=== PATIENT | female | born 1980 | race Two or more races ===

== ENCOUNTER 2024-06-30 16:29 | Emergency (ER) | payer MEDICAID, SELFPAY ==
[2024-06-30 17:03] VITALS: BP 143/95; PULSE 80; RESP 20; TEMP 36.6; O2SAT 99
--- NOTE | 2024-06-30 17:07 | XR_ITS ---
Examination: CT brain head without contrast. 2-D sagittal coronal reconstructions Date and time of exam:June 30, 2024 1708 hrs. Indications: Patient fell downstairs today with injury to the head, head pain CTDI: vol (mGy):54.1 DLP: (mGycm):1050 Technique: Multiple CT axial sections of the brain have been obtained, 5 mm slice thickness. Contrast has not been administered. 2-D sagittal, coronal reconstructions have been obtained Low dose protocols were performed. One or more of the following dose reduction techniques were used; automated exposure control, adjustment of the mA and/or KV according to patient size, use of iterative reconstruction technique. Findings: No significant ventricular enlargement. Intra-axial or extra-axial hemorrhage density is not seen. No mass effect or midline shift Basal cisterns are not remarkable. Fourth ventricle is midline. Cranial vault intact. Impression: Negative for acute hemorrhage, mass effect or midline shift
--- NOTE | 2024-06-30 17:07 | XR_ITS ---
Examination: Right wrist 2 views Technique one AP lateral right wrist 2 views Exam date and time: June 30, 2024 1721 hrs. Findings: This examination performed 1722 hrs., oon Synapse 7:42 PM No fracture No dislocation No foreign body Impression: No acute fracture
--- NOTE | 2024-06-30 17:07 | XR_ITS ---
Examination: Right elbow 3 views Technique: Elbow AP, oblique, lateral 3 views Exam date and time: June 30, 2024 1725 hrs. Indications: Patient fell today with injury to the elbow, elbow pain. Findings: No fracture or dislocation No opaque foreign body Impression: No fracture or dislocation.
--- NOTE | 2024-06-30 17:07 | XR_ITS ---
Examination: CT cervical spine without contrast 2-D sagittal reconstructions 2-D coronal reconstructions 3-D reconstructions. Exam date and time:June 30, 2024 1708 hrs. Indications: Patient fell today with injury to the neck, neck pain CTDI:vol (mGy) 9.45 DLP: (mGycm) 229 Technique: Multiple 2 mm axial sections of the cervical spine have been obtained. The coronal and sagittal reconstructions have been obtained. 3-D reconstructions have been obtained. Low dose protocols were performed. One or more of the following dose reduction techniques were used; automated exposure control, adjustment of the mA and/or KV according to patient size, use of iterative reconstruction technique. Findings: Axial sections demonstrate intact base of the skull. C1 exhibit satisfactory relationship to the odontoid. No acute cervical vertebral body fracture seen. Alignment posterior spinous processes satisfactory. Impression: No acute cervical fracture.
--- NOTE | 2024-06-30 17:08 | EDNOTE_ITS ---
<Statement entered by Julienne Pizano MD - 07/01/24 01:46> As co-signing physician, I was present and available for consult prn. I concur with the plan and care as documented by the midlevel provider. ED Fall Injury RME/HPI General Chief Complaint: Fall Stated Complaint: FELL DOWN STAIRS Time Seen by Provider: 06/30/24 17:01 Arrival date/time: 06/30/24 16:29 43-year-old female reports with complaints of multiple injuries after falling down a flight of stairs. Patient states that she fell down approximately 20 submitted stairs slamming her head on the cement injuring the right elbow and wrist. Patient denies any loss of consciousness dizziness blurred vision ringing in ears shortness of breath chest pain nausea or vomiting numbness tingling decreased range of motion or weakness of the right upper extremity. Patient reports taking no medications for pain and denies chance of Limitations: no limitations Related Data Previous Rx's ?Medication ?Instructions ?Recorded cefuroxime axetil 500 mg tablet 500 mg PO BID #14 tabs 09/30/22 pantoprazole 40 mg tablet,delayed 40 mg PO QDAY #20 ta bs 09/30/22 release (Protonix) Allergies Allergy/AdvReac Type Severity Reaction Status Date / Time No Known Allergies Allergy Verified 09/30/22 11:49 Review of Systems Constitutional Constitutional: Denies chills and Denies fever(s) ENT Ears, Nose, Mouth, and Throat: Denies disequilibrium, Denies dizziness, Reports neck pain and Denies vertigo Cardiovascular Cardiovascular: Denies chest pain, Denies dyspnea and Denies syncope Respiratory Respiratory: Denies dyspnea and Denies hemoptysis Gastrointestinal Gastrointestinal: Denies nausea and Denies vomiting Musculoskeletal Musculoskeletal: Reports arthralgias, Denies joint swelling, Reports neck pain, Denies numbness and Denies tingling Integumentary/Breasts Skin/Breast: Denies unusual bruising and Denies wounds Neurologic Neurologic: Denies behavioral changes, Denies confusion, Denies convulsions, Denies disequilibrium, Denies dizziness, Denies numbness, Denies syncope, Denies tingling and Denies vertigo Psychiatric Psychiatric: Denies behavioral changes and Denies confusion Hematologic/Lymphatic Hematologic/Lymphatic: Denies easy bleeding and Denies easy bruising Past Medical History Past Medical History CARDIAC: Positive Cardiac Disorders and Hypertension; Negative Congestive Heart Failure RESPIRATORY: Negative Chronic Obstructive Pulmonary Disease (COPD) GENITOURINARY: Negative Renal Disease ENDOCRINE: Negative Diabetes Mellitus Type 1 or Diabetes Mellitus Type 2 Social History SMOKING STATUS: Never smoker ED Exam General Limitations: Present no limitations General appearance: Present alert and in no apparent distress Head Head exam: Present atraumatic, normocephalic and normal inspection Eye Eye exam: Present normal appearance, PERRL and EOMI ENT ENT exam: Present normal exam, normal oropharynx and mucous membranes moist Neck Neck exam: Present normal inspection, full ROM and trachea midline Chest Chest inspection: Present normal inspection and symmetric chest wall rise Respiratory Respiratory exam: Present normal lung sounds bilaterally Cardiovascular Cardiovascular exam: Present regular rate, normal rhythm and normal heart sounds Abdominal Exam Abdominal exam: Present soft and normal bowel sounds Extremities Exam Extremities exam: Present normal inspection and full ROM Expanded Upper Extremity Exam Shoulder exam: Present normal inspection and full ROM; Absent tenderness Arm exam: Present normal inspection and full ROM; Absent tenderness Elbow exam: Present normal inspection, full ROM and tenderness (Mild tenderness diffusely over the right olecranon); Absent swelling, abrasion, laceration, ecchymosis, deformity, crepitus, dislocation, erythema, effusion, pain w/ pronation/supination or tenderness over radial head Forearm/Wrist exam: Present normal inspection, full ROM and tenderness (Diffusely tender to right wrist); Absent swelling, abrasion, laceration, ecchymosis, deformity, crepitus, dislocation, erythema, tenderness over anatomical snuff box or pain with axial thumb loading Hand exam: Present normal inspection and full ROM Neuromotor exam: Normal wrist extension, thumb opposition, thumb IP flexion and fingers 2-5 abduction Neurosensory exam: Normal radial nerve and ulnar nerve Vascular exam: Normal capillary refill, radial pulse and ulnar pulse Back Exam Back exam: Present normal inspection and full ROM Neurological Exam Neurological exam: Present alert, oriented X3 and CN II-XII intact Psychiatric Psychiatric exam: Present normal affect and normal mood Skin Skin exam: Present warm, dry, intact and normal color Course Course Course Narrative: 43-year-old female reports with multiple injuries after falling down a flight of stairs. Head CT is negative for mid shifts or fractures CT cervical spine also negative for fractures or derangements x-ray of the right elbow and wrist also negative for fractures or dislocations. Quality Measures none Orders Category Date Time Status CT cervical spine wo con Stat Exams 06/30/24 17:[address] head/brain wo con Stat Exams 06/30/24 17:07 Completed XR elbow comp RT min 3V Stat Exams 06/30/24 17:07 Completed XR wrist RT 2V Stat Exams 06/30/24 17:07 Taken Vital Signs Vital signs: Vital Signs Temperature 97.9 F 06/30/24 17:03 Pulse Rate 80 06/30/24 17:03 Respiratory Rate 20 06/30/24 17:03 Blood Pressure 143/95 H 06/30/24 17:03 Pulse Oximetry (%) 99 06/30/24 17:03 Oxygen Delivery Method Room Air 06/30/24 17:03 Fall Patient data External records reviewed:: None Clinical information provided by:: patient Social determinants that could affect healthcare access:: none Patient has the following chronic illnesses:: none How is presenting disease/condition affected by chronic disease/condition?: no chronic disease Evaluation data The following diagnostics were reviewed and interpreted by me:: radiology exam(s) Lab and/or radiology exams considered but not ordered:: none Interpretation Summary: Head CT is negative for bleeds or mid shift, CT of cervical spine negative for fractures or derangements, x-ray of right elbow negative for fractures or dislocations, x-ray of right wrist negative for fractures or dislocations Medications / Prescriptions Medications or Prescriptions considered but not ordered:: none Medication administrations:: none Consultations Consultation(s) initiated? (list below): No Diagnosis Fall Differential Diagnosis: fracture of wrist, concussion without loss of consciousness and other Most likely diagnosis given after review of the tests above:: 1 scalp contusion. 2 elbow contusion. 3 right wrist sprain 4. cervical strain Admission Indicated Admission indicated?: not indicated Admission Request Was there a request for admission?: No Disposition Plan Disposition Plan: Discharge Discharge Attestation Discharge Attestation: The patient and all family members were given an opportunity to ask questions and understood the discharge instructions. Discharge instructions specifically effects, indications for sooner follow up or return to the emergency department, and the expected course of current diagnosis. Patient condition: Stable Discharge Plan Plan Patient Disposition: HOME (Self Care) Prescriptions/Referrals Prescriptions/Med Rec: No Action cefuroxime axetil 500 mg tablet 500 mg PO BID Qty: 14 0RF pantoprazole [Protonix] 40 mg tablet,delayed release (/EC) 40 mg PO QDAY Qty: 20 0RF Referrals: Mary Dennis FNP [Primary Care Provider] - In 1 week Problem List Clinical Impression: Contusion of scalp, Cervical sprain, Contusion of elbow, right, Right wrist sprain Patient/Caregiver Discharge Instructions Education Materials: ED Head Injury (Adult), ED Neck Sprain or Strain, ED Muscle Strain, Extremity Additional Instructions: Your scans and x-rays were all normal your pain is from bruising and strains use medication such as Tylenol or ibuprofen as needed for pain apply ice and rest follow-up with your primary care provider if no improvement in 3 days Print Language: Nigerien Stand Alone Forms: Courtney Award Info., Patient Portal Info Letter
== END 2024-06-30 19:59 | disposition home or self-care (01) ==
PROVIDERS: Emergency Provider Emergency Medicine; PCP Nurse Practitioner Family
DX: S00.03XA Contusion of scalp, initial encounter (principal); S13.4XXA Sprain of ligaments of cervical spine, initial encounter; S63.501A Unspecified sprain of right wrist, initial encounter; S50.01XA Contusion of right elbow, initial encounter; W10.9XXA Fall (on) (from) unspecified stairs and steps, initial encounter
CPT/HCPCS: 70450; 72125; 73080; 73100; 99284